=== PATIENT | male | born 1990 | race African-American/Black ===

== ENCOUNTER 2017-10-30 02:08 | Emergency (ER) | payer MEDICAID ==
[~2017-10-30] VITALS: Ht 175.3 cm; Wt 61.2 kg
[2017-10-30 02:31] VITALS: BP 110/77
[2017-10-30 03:05] VITALS: BP 0/0
[2017-10-30] MEDS ORDERED: LORazepam 1mg tab ORAL ONE (03:15)
--- NOTE | 2017-10-30 05:40 | Emergency Room Report ---
History of Present Illness General Chief Complaint: Behavioral Complaint Source: Patient Present Illness HPI 27-year-old male presents ED for evaluation. Patient states he's been hearing voices for the last 2 days and feeling depressed. Denies SI or HI. Feels very anxious. States he did use meth a few days ago. Denies chest pain or shortness of breath. States he is noncompliant with his psychiatric meds. States he takes Wellbutrin, gabapentin, Zyprexa. Denies alcohol use. Denies any other drug use. No other aggravating or relieving factors. Denies any other associated symptoms Allergies: Coded Allergies: No Known Allergies (Unverified , 10/30/17) Patient History Past Medical History: psych hx Past Surgical History: none Pertinent Family History: none Social History: Reports: drug use Immunizations: UTD Reviewed Nursing Documentation: PMH: Agreed; PSxH: Agreed Nursing Documentation-PMH History Of Psychiatric Problem: Yes - SCHIZO,DEPRESSION,ANXIETY Review of Systems All Other Systems: negative except mentioned in HPI Physical Exam Vital Signs Date Time Temp Pulse Resp B/P (MAP) Pulse Ox O2 Delivery O2 Flow Rate FiO2 10/30/17 02:26 97.7 84 16 110/77 100 Room Air 97.7 Sp02 EP Interpretation: reviewed, normal General Appearance: no apparent distress, alert, GCS 15, non-toxic Head: normocephalic, atraumatic Eyes: bilateral eye normal inspection, bilateral eye PERRL ENT: hearing grossly normal, normal pharynx, no angioedema, normal voice Neck: full range of motion, supple/symm/no masses Respiratory: chest non-tender, lungs clear, normal breath sounds, speaking full sentences Cardiovascular #1: regular rate, rhythm, no edema Cardiovascular #2: 2+ carotid (R), 2+ carotid (L), 2+ radial (R), 2+ radial (L) , 2+ dorsalis pedis (R), 2+ dorsalis pedis (L) Gastrointestinal: normal bowel sounds, non tender, soft, non-distended, no guarding, no rebound Rectal: deferred Genitourinary: normal inspection, no CVA tenderness Musculoskeletal: back normal, gait/station normal, normal range of motion, non- tender Neurologic: alert, oriented x3, responsive, motor strength/tone normal, sensory intact, speech normal Psychiatric: no suicidal/homicidal ideation, depressed affect, anxious Reflexes: 3+ bicep (R), 3+ bicep (L), 3+ tricep (R), 3+ tricep (L), 3+ knee (R) , 3+ knee (L) Skin: normal color, no rash, warm/dry, well hydrated Lymphatic: no adenopathy Medical Decision Making Diagnostic Impression: Primary Impression: Substance abuse ER Course Hospital Course 27-year-old male presents feeling anxious, hearing voices Clinical course Patient placed on stretcher. Initial history physical exam reveals male in no acute distress. Patient appears anxious however maintaining good eye contact. Admitted to methamphetamine use No evidence of SI or HI here. I ordered Ativan for the patient Patient eloped from ED Diagnosis - substance abuse patient eloped from ED Last Vital Signs Date Time Temp Pulse Resp B/P (MAP) Pulse Ox O2 Delivery O2 Flow Rate FiO2 10/30/17 03:05 0/0 10/30/17 02:31 97.7 84 16 100 Room Air 97.7 Status: improved Disposition: ELOPED Condition: Stable Referrals: RENITA,REFERRING (PCP) Quique Masterson MD Oct 30, 2017 05:39
== END 2017-10-30 03:05 | disposition left against medical advice (07) ==
LOC: EMR 02:52
DX: F15.10 Other stimulant abuse, uncomplicated (principal); F32.9 Major depressive disorder, single episode, unspecified; F41.9 Anxiety disorder, unspecified; F20.9 Schizophrenia, unspecified
CPT/HCPCS: 99283